=== PATIENT | male | born 1950 | race Caucasian/White ===

== ENCOUNTER 2016-08-25 21:29 | Emergency (ER) | payer MEDICARE, BC ==
[2016-08-25 21:43] VITALS: RESP 18; TEMP 97.5
[2016-08-25] MEDS ORDERED: SODIUM CHLORIDE 0.9% 500 ML IV STA (22:12)
[2016-08-25] MEDS ORDERED: RX INFO: IV CONTRAST WAS GIVEN 1 EACH MISC MISCELLANE PRN (22:12)
--- NOTE | 2016-08-25 23:01 | ED ---
Abdominal Pain HPI - General Chief Complaint: Abdominal Pain Stated Complaint: Abd swelling Time Seen by Provider: 08/25/16 22:12 Source: patient, RN notes reviewed Mode of arrival: ambulatory Limitations: no limitations - History of Present Illness Initial Comments: Patient is a 65-year-old male presenting to the with chief complaint of feeling a bulge in his left upper quadrant of his abdomen. Patient reports he' s had a history of a triple a repair and stated that his surgery went well. Patient reports that this happened approximately a year ago. Patient denies any abdominal pain at this time he denies any nausea or vomiting. He just reports that he's noticed this bulge over the area for approximately one day. He states that he was given a rash over the abdomen and is concerned that maybe the mesh removed causing a hernia. Patient denies any fever or chills. Patient denies any recent fever, chills, shortness of breath, chest pain, back pain, abdominal pain, nausea vomiting, numbness or tingling, dysuria or hematuria, constipation or diarrhea, headaches or visual changes, or any other current symptoms - Related Data Home Medications Medication Instructions Recorded Confirmed Aspirin 81 mg PO DAILY 03/18/14 08/25/16 Atorvastatin [Lipitor] 40 mg PO DAILY 08/25/16 08/25/16 Lisinopril [Zestril] 5 mg PO DAILY 08/25/16 08/25/16 Metoprolol Tartrate [Lopressor] 25 mg PO BID 08/25/16 08/25/16 Tadalafil [Cialis] 5 mg PO DIRECTED 08/25/16 08/25/16 Allergies Allergy/AdvReac Type Severity Reaction Status Date / Time No Known Allergies Allergy Verified 08/25/16 22:30 Review of Systems ROS Statement: Those systems with pertinent positive or pertinent negative responses have been documented in the HPI. ROS Other: All systems not noted in ROS Statement are negative. Past Medical History Past Medical History: Hyperlipidemia, Hypertension Additional Past Medical History / Comment(s): aortic aneursym History of Any Multi-Drug Resistant Organisms: None Reported Past Surgical History: Hernia Repair Past Anesthesia/Blood Transfusion Reactions: No Reported Reaction Past Psychological History: No Psychological Hx Reported Smoking Status: Never smoker Past Alcohol Use History: Occasional Past Drug Use History: None Reported General Exam - General Exam Comments Initial Comments: Patient is a well-appearing 65-year-old male. He does not appear to be in any acute distress. Limitations: no limitations General appearance: alert, in no apparent distress Head exam: Present: atraumatic, normocephalic, normal inspection Eye exam: Present: normal appearance, PERRL, EOMI. Absent: scleral icterus, conjunctival injection, periorbital swelling ENT exam: Present: normal exam, mucous membranes moist Neck exam: Present: normal inspection. Absent: tenderness, meningismus, lymphadenopathy Respiratory exam: Present: normal lung sounds bilaterally. Absent: respiratory distress, wheezes, rales, rhonchi, stridor Cardiovascular Exam: Present: regular rate, normal rhythm, normal heart sounds. Absent: systolic murmur, diastolic murmur, rubs, gallop, clicks GI/Abdominal exam: Present: soft, normal bowel sounds, mass (Evidence of a bulge in the left upper quadrant measuring approximately 4 cm x 5 cm. No evidence of acute tenderness at the area of the bulge. No evidence of strangulation. No numbness of erythema around the abdomen.). Absent: distended , tenderness, guarding, rebound, rigid Extremities exam: Present: normal inspection, full ROM, normal capillary refill. Absent: tenderness, pedal edema, joint swelling, calf tenderness Back exam: Present: normal inspection Neurological exam: Present: alert, oriented X3, CN II-XII intact Psychiatric exam: Present: normal affect, normal mood Skin exam: Present: warm, dry, intact, normal color. Absent: rash Course Vital Signs 08/25/16 08/26/16 21:40 00:42 Temperature 97.5 F L Pulse Rate 94 79 Respiratory 18 18 Rate Blood Pressure 140/81 133/86 O2 Sat by Pulse 97 98 Oximetry Medical Decision Making - Medical Decision Making Patient is a 65-year-old male presenting to the with chief complaint of left- sided abdominal bulge. Patient reports he has had a history of AAA and repair. Patient reports that he has no abdominal pain at this time. He just reported that he looked down and noticed a bulge today. He denies any straining or heavy lifting causing the bulge. All labs are reviewed to be negative. Patient CT shows no significant abnormalities in the abdomen. There is evidence of the right upper quadrant abdominal irregularity related to the hernia repair which is related to the abdominal lump. There is no inflammation or fluid collections noted in the area. The patient has no pain and I'll have him follow-up with surgeon out patiently in regards to this abdominal bulge. Return parameters were discussed. Patient understands treatment plan will comply. - Lab Data Result diagrams: 08/25/16 23:07 08/25/16 23:07 Lab Results 08/25/16 08/25/16 08/25/16 Range/Units 23:07 23:07 23:07 WBC 9.6 (3.8-10.6) k/uL RBC 4.73 (4.30-5.90) m/uL Hgb 14.9 (13.0-17.5) gm/dL Hct 45.0 (39.0-53.0) % MCV 95.1 (80.0-100.0) fL MCH 31.6 (25.0-35.0) pg MCHC 33.2 (31.0-37.0) g/dL RDW 13.1 (11.5-15.5) % Plt Count 170 (150-450) k/uL Neutrophils % 63 % Lymphocytes % 23 % Monocytes % 8 % Eosinophils % 3 % Basophils % 1 % Neutrophils # 6.0 (1.3-7.7) k/uL Lymphocytes # 2.2 (1.0-4.8) k/uL Monocytes # 0.8 (0-1.0) k/uL Eosinophils # 0.3 (0-0.7) k/uL Basophils # 0.1 (0-0.2) k/uL Sodium 140 (137-145) mmol/L Potassium 4.3 (3.5-5.1) mmol/L Chloride 107 (98-107) mmol/L Carbon Dioxide 23 (22-30) mmol/L Anion Gap 10 mmol/L BUN 23 H (9-20) mg/dL Creatinine 0.80 (0.66-1.25) mg/dL Est GFR (MDRD) Af Amer >60 (>60 ml/min/1.73 sqM) Est GFR (MDRD) Non-Af >60 (>60 ml/min/1.73 sqM) Glucose 119 H (74-99) mg/dL Plasma Lactic Acid Mio 0.8 (0.7-2.0) mmol/L Calcium 9.2 (8.4-10.2) mg/dL Total Bilirubin 0.5 (0.2-1.3) mg/dL AST 37 (17-59) U/L ALT 50 (21-72) U/L Alkaline Phosphatase 80 (38-126) U/L Total Protein 6.9 (6.3-8.2) g/dL Albumin 4.1 (3.5-5.0) g/dL Amylase 32 (30-110) U/L Lipase 57 (23-300) U/L - Radiology Data Radiology results: report reviewed CT abdomen and pelvis shows no acute abnormalities noted in the abdomen and pelvis. There is postsurgical changes of the abdominal hernia repair with slight irregularity in the right upper abdomen related to patient's right upper side abdominal wall. No abnormal inflammation or fluid collections are noted in this area or anterior right abdomen. Clinical correlation and follow-up is recommended. Postsurgical changes of the AAA repair with extensor and place. He patient has chronic diverticulosis. Patient also has an enlarged prostate gland. This was read by Dr. Lorin espinosa. Disposition Clinical Impression: Abdominal wall bulge Disposition: HOME SELF-CARE Condition: Good Instructions: Ventral Hernia (ED) Additional Instructions: Is instructed to follow-up with surgeon in regards to these changes. Patient instructed to return to the [facility] if any alarming signs or symptoms occur quickly increased pain or redness of the bulging site. Follow-up with primary care physician as well in one to 2 days. Referrals: Sarath Love MD [Primary Care Provider] - 1-2 days Time of Disposition: 00:37
[2016-08-25 23:16] LABS: Basophils # (A) 0.1 k/uL (0-0.2); Basophils % (A) 1 %; CH 32.2; Eosinophils # (A) 0.3 k/uL (0-0.7); Eosinophils % (A) 3 %; HDW 2.26; HGB 14.9 gm/dL (13.0-17.5); Luc # (Auto) 0.22; Luc % (Auto) 2; Lymphocytes # (A) 2.2 k/uL (1.0-4.8); Lymphocytes % (A) 23 %; MCH 31.6 pg (25.0-35.0); MCHC 33.2 g/dL (31.0-37.0); MCV 95.1 fL (80.0-100.0); Mean Platelet Volume 6.7; Monocytes # (A) 0.8 k/uL (0-1.0); Monocytes % (A) 8 %; Neutrophils % (A) 63 %; RBC 4.73 m/uL (4.30-5.90); RDW 13.1 % (11.5-15.5); WBC 9.6 k/uL (3.8-10.6); WBC (Perox) 10.12
[2016-08-25 23:27] LABS: ALT 50 U/L (21-72); AST 37 U/L (17-59); Alkaline Phosphatase 80 U/L (38-126); Amylase 32 U/L (30-110); Anion Gap 10 mmol/L; Blood Urea Nitrogen 23 mg/dL (9-20); Calcium 9.2 mg/dL (8.4-10.2); Carbon Dioxide 23 mmol/L (22-30); Chloride 107 mmol/L (98-107); Glucose 119 mg/dL (74-99); Non-African American GFR(MDRD) >60 (>60 ml/min/1.73 sqM); Potassium 4.3 mmol/L (3.5-5.1); Sodium 140 mmol/L (137-145); Total Bilirubin 0.5 mg/dL (0.2-1.3); Total Protein 6.9 g/dL (6.3-8.2)
--- NOTE | 2016-08-26 00:22 | CT ---
EXAMINATION TYPE: CT abdomen pelvis w con DATE OF EXAM: 08/25/2016 11:57 PM COMPARISON: 01/06/2015 HISTORY: upper abd pain, possible hernia. History of lump in the upper right side of abdomen. History of AAA and hernia. CT DLP: 520.70 mGycm Automated exposure control for dose reduction was used. TECHNIQUE: Helical acquisition of images was performed from the lung bases through the pelvis. CONTRAST: Performed without Oral Contrast and with IV Contrast, patient injected with 100 mL of Omnipaque 300. FINDINGS: LUNG BASES: Mild dependent atelectasis is noted in both lung bases. LIVER/GB: No significant abnormality is appreciated. PANCREAS: No significant abnormality is seen. SPLEEN: No significant abnormality is seen. ADRENALS: No significant abnormality is seen. KIDNEYS: No significant abnormality is seen. RETROPERITONEAL ADENOPATHY: None visualized REPRODUCTIVE ORGANS: Enlarged prostate gland is noted. URINARY BLADDER: No significant abnormality is seen. PELVIC ADENOPATHY: None visualized. OSSEOUS STRUCTURES: No significant abnormality is seen. BOWEL: There is evidence of mild to moderate colonic diverticulosis without definite acute diverticu litis changes. Appendix is not well visualized and no significant inflammation is noted in the append ix area. OTHER: There are postsurgical changes of repair of anterior abdominal wall hernia with mesh in place without definite recurrent abdominal hernia. There is slight irregularity in the area of postsurgical changes of anterior abdominal wall hernia an d is most likely related to postsurgical changes and the mesh in place. There is somewhat prominent soft tissue projection of anterior abdominal muscles in the right upper a bdomen in the axial image 55 is probably related to the patient's feeling of lump in the upper right abdomen and is most likely related to postsurgical changes with muscular structures rather than abnor mal fluid collections or abscess collection. There are postsurgical changes of repair of the distal AAA with aortoiliac stents in place without de finite recurrent aneurysm. The infrarenal abdominal aorta measures 2.5 cm in greatest transverse diameter in the infrarenal area in the axial image 50. Atherosclerotic calcification is noted in this area of abdominal aortic aneur ysm. The lucencies seen in the distal abdominal aorta in the coronal image 39 are probably related to postsurgical changes with stent placement. IMPRESSION: 1. NO SIGNIFICANT ACUTE ABNORMALITIES ARE NOTED IN THE ABDOMEN AND PELVIS. 2. POSTSURGICAL CHANGES OF ABDOMINAL HERNIA REPAIR WITH SLIGHT IRREGULARITY IN THE RIGHT UPPER ABDOME N PROBABLY RELATED TO PATIENT'S UPPER RIGHT SIDE ABDOMINAL LUMP. NO ABNORMAL INFLAMMATION OR FLUID CO LLECTIONS ARE NOTED IN THIS AREA OF ANTERIOR RIGHT UPPER ABDOMEN. A CLINICAL CORRELATION AND FOLLOW-U P IS RECOMMENDED. 3. POSTSURGICAL CHANGES OF AAA REPAIR WITH STENTS IN PLACE. 4. COLONIC DIVERTICULOSIS. 5. ENLARGED PROSTATE GLAND.
[2016-08-26 00:46] VITALS: BP 133/86; PULSE 79
== END 2016-08-26 00:43 | disposition home or self-care (01) ==
LOC: EC 21:29
DX: K43.9 Ventral hernia without obstruction or gangrene (principal); E78.5 Hyperlipidemia, unspecified; I10 Essential (primary) hypertension; Z86.79 Personal history of other diseases of the circulatory system; Z79.82 Long term (current) use of aspirin; Z79.899 Other long term (current) drug therapy; Z98.890 Other specified postprocedural states
CPT/HCPCS: 99284 ×2; 96360 ×2; 96361 ×2; 36415; 80053; 82150; 83605; 83690; 85025; 74177; Q9967

== ENCOUNTER → 2021-10-27 | Outpatient (CLI) | payer MEDICARE ==
--- NOTE | 2021-10-27 16:18 | US ---
EXAMINATION TYPE: US carotid duplex BILAT DATE OF EXAM: 10/27/2021 COMPARISON: NONE CLINICAL HISTORY: I73.1 AAA. no stroke history, no symptoms, h/o AAA repair EXAM MEASUREMENTS: RIGHT: Peak Systolic Velocity (PSV) cm/sec ----- Right CCA: 57.0 ----- Right ICA: 120.0 ----- Right ECA: 70.0 ICA/CCA ratio: 2.1 RIGHT: End Diastole cm/sec ----- Right CCA: 12.6 ----- Right ICA: 44.7 ----- Right ECA: 9.4 LEFT: Peak Systolic Velocity (PSV) cm/sec ----- Left CCA: 63.0 ----- Left ICA: 53.7 ----- Left ECA: 50.2 ICA/CCA ratio: 0.9 LEFT: End Diastole cm/sec ----- Left CCA: 15.9 ----- Left ICA: 13.3 ----- Left ECA: 5.9 VERTEBRALS (direction of flow): Right Vertebral: Antegrade Left Vertebral: Antegrade Rhythm: Normal Mild heterogeneous plaque with no significant stenosis seen . Small amount of plaque is at the right carotid bulb. Intimal thickenings in the common carotid artery on the right. Small plaque is within t he left carotid bulb. IMPRESSION: 1. Atheromatous plaquing present bilaterally without significant flow-limiting stenosis. Criteria for Assigning % of Stenosis / Diameter reduction (Estimation based on the indirect measurements of the internal carotid artery velocities (ICA PSV). 1. Normal (no stenosis)=ICA PSV < 125 cm/s: ratio < 2.0: ICA EDV<40 cm/s. 2. Less than 50% stenosis=ICA PSV < 125 cm/s: ratio < 2.0: ICA EDV<40 cm/s. 3. 50 to 69% stenosis=ICA PSV of 125 to 230 cm/s: ration 2.0 ? 4.0: ICA EDV 40-100 cm/s. 4. Greater than 70% stenosis to near occlusion= ICA PSV > 230 cm/s: ratio > 4.0: ICA EDV > 100 cm/s. 5. Near occlusion= ICA PSV velocities may be low or undetectable: variable ratio and ICA EDV. 6. Total occlusion=unable to detect flow.
== END | disposition home or self-care (01) ==
LOC: RADUSWWP 12:07
PROVIDERS: ATTEND Family Medicine
DX: I67.2 Cerebral atherosclerosis (principal)
CPT/HCPCS: 93880

== ENCOUNTER 2022-08-20 21:45 | Emergency (ER) | payer MEDICARE ==
[2022-08-20 21:55] VITALS: TEMP 97.2
--- NOTE | 2022-08-20 22:00 | ED ---
SOB HPI - General Chief Complaint: Shortness of Breath Stated Complaint: SOB Time Seen by Provider: 08/20/22 21:58 Source: patient, RN notes reviewed, old records reviewed, Caregiver Mode of arrival: ambulatory Limitations: no limitations - History of Present Illness Initial Comments: This is a 71-year-old male DF for evaluation today. Patient Dese for evaluation of severe shortness of breath increased shortness of breath that got significantly worse I will making his bed. He became very anxious checked his blood pressure was severely elevated and he came in the emergency department. Patient has no current chest pain x-ray states he feels better now that he has been waiting to come the hospital. Patient has no recent travel history or sick contacts recent fever cough congestion or illnesses MD Complaint: shortness of breath -: minutes(s) Severity: moderate Severity scale (1-10): 7 Consistency: constant, now resolved (Not resolved but improving) Improves With: rest Worsens With: exertion, movement Known History Of: other (0) Context: other (0) Associated Symptoms: denies other symptoms Treatments Prior to Arrival: none - Related Data Home Medications Medication Instructions Recorded Confirmed Aspirin 81 mg PO DAILY 03/18/14 08/25/16 Atorvastatin [Lipitor] 40 mg PO DAILY 08/25/16 08/25/16 Metoprolol Tartrate [Lopressor] 25 mg PO BID 08/25/16 08/25/16 Tadalafil [Cialis] 5 mg PO DIRECTED 08/25/16 08/25/16 lisinopriL [Zestril] 5 mg PO DAILY 08/25/16 08/25/16 Allergies Allergy/AdvReac Type Severity Reaction Status Date / Time No Known Allergies Allergy Verified 08/20/22 21:51 Review of Systems ROS Statement: Those systems with pertinent positive or pertinent negative responses have been documented in the HPI. ROS Other: All systems not noted in ROS Statement are negative. Past Medical History Past Medical History: Hyperlipidemia, Hypertension Additional Past Medical History / Comment(s): aortic aneursym History of Any Multi-Drug Resistant Organisms: None Reported Past Surgical History: Hernia Repair Additional Past Surgical History / Comment(s): AAA repair Past Anesthesia/Blood Transfusion Reactions: No Reported Reaction Past Psychological History: No Psychological Hx Reported Smoking Status: Never smoker Past Alcohol Use History: Occasional Past Drug Use History: None Reported General Exam Limitations: no limitations General appearance: alert, in no apparent distress Head exam: Present: atraumatic, normocephalic, normal inspection Eye exam: Present: normal appearance, PERRL, EOMI. Absent: scleral icterus, conjunctival injection, periorbital swelling ENT exam: Present: normal exam, mucous membranes moist Neck exam: Present: normal inspection. Absent: tenderness, meningismus, lymphadenopathy Respiratory exam: Present: normal lung sounds bilaterally. Absent: respiratory distress, wheezes, rales, rhonchi, stridor Cardiovascular Exam: Present: regular rate, normal rhythm, normal heart sounds. Absent: systolic murmur, diastolic murmur, rubs, gallop, clicks GI/Abdominal exam: Present: soft, normal bowel sounds. Absent: distended, tenderness, guarding, rebound, rigid Extremities exam: Present: normal inspection, full ROM, normal capillary refill. Absent: tenderness, pedal edema, joint swelling, calf tenderness Back exam: Present: normal inspection Neurological exam: Present: alert, oriented X3, CN II-XII intact Psychiatric exam: Present: normal affect, normal mood Skin exam: Present: warm, dry, intact, normal color. Absent: rash Course Vital Signs 08/20/22 08/20/22 08/20/22 21:51 21:56 22:02 Temperature 97.2 F L Pulse Rate 98 Respiratory 18 Rate Blood Pressure 208/129 183/115 O2 Sat by Pulse 95 95 Oximetry 08/20/22 08/20/22 08/20/22 22:03 22:04 22:05 Temperature Pulse Rate 99 95 Respiratory 20 21 22 Rate Blood Pressure 194/118 O2 Sat by Pulse 95 95 96 Oximetry 08/20/22 08/20/22 08/20/22 22:06 22:07 22:08 Temperature Pulse Rate 93 95 94 Respiratory 19 20 18 Rate Blood Pressure 194/118 194/118 194/118 O2 Sat by Pulse 95 94 L 95 Oximetry 08/20/22 08/20/22 08/20/22 22:09 22:10 22:11 Temperature Pulse Rate 96 94 90 Respiratory 13 23 17 Rate Blood Pressure 194/118 194/118 194/118 O2 Sat by Pulse 94 L 94 L 95 Oximetry 08/20/22 08/20/22 08/20/22 22:12 22:13 22:14 Temperature Pulse Rate 96 95 100 Respiratory 22 11 L 19 Rate Blood Pressure 194/118 194/118 194/118 O2 Sat by Pulse 95 94 L 94 L Oximetry 08/20/22 08/20/22 08/20/22 22:15 22:16 22:17 Temperature Pulse Rate 96 96 99 Respiratory 6 L 21 30 H Rate Blood Pressure 194/118 194/118 192/121 O2 Sat by Pulse 93 L 94 L 93 L Oximetry 08/20/22 08/20/22 08/20/22 22:30 23:00 23:59 Temperature Pulse Rate 97 100 Respiratory 16 19 18 Rate Blood Pressure 192/121 187/129 175/125 O2 Sat by Pulse 93 L 93 L 91 L Oximetry - Reevaluation(s) Reevaluation #1: 08/20/22 22:00 Medical records reviewed Reevaluation #2: 08/21/22 00:04 Patient symptoms continue to improve remains without any shortness of breath or chest pain Reevaluation #3: 08/21/22 00:04 Patient informed results and questions are answered Reevaluation #4: 08/20/22 22:00 Differential Dyspnea: Coronary syndrome, arrhythmia, tamponade, asthma, COPD, pulmonary embolism, pneumonia, pneumothorax, pulmonary effusion, anaphylaxis, diabetic ketoacidosis, flailed chest, pulmonary contusion, diaphragmatic rupture, anemia, neuromuscular, this is not meant to be an all-inclusive list. Reevaluation #5: 08/20/22 22:00 Was pt. sent in by a medical professional or institution? @ -no Did you speak to anyone other than the patient for history? @ -no Did you review nursing and triage notes? @ -agree Were old charts reviewed? @ -yes prior sx evaluation Differential Diagnosis? @ -prior EKG interpreted by me (3pts min.)? @ -[none] X-rays interpreted by me (1pt min.)? @ -yes CT interpreted by me (1pt min.)? @ -[none] U/S interpreted by me (1pt. min.)? @ -[none] What testing was considered but not performed? (CT, X-rays, U/S, labs)? Why? @ no What meds were considered but not given? Why? @ -[none] Did you discuss the management of the patient with other professionals? @ -no Did you reconcile home meds? @ -[none] Was smoking cessation discussed for >3mins.? @ -[none] Was critical care preformed (if so, how long)? @ -[none] Were there social determinants of health that impacted care today? How? (H omelessness, low income, unemployed, alcoholism, drug addiction, transportation, low edu. Level, literacy, decrease access to med. care, shelter, rehab)? @ -no Was there de-escalation of care discussed even if they declined? (Discuss DNR or withdrawal of care, Hospice)? @ -no What co-morbidities impacted this encounter? (DM, HTN, Smoking, COPD, CAD, Cancer, CVA, Hep., AIDS, mental health diagnosis, sleep apnea, morbid obesity)? @ -no Was patient admitted / discharged? @ -dc Undiagnosed new problem with uncertain prognosis? @ -[none] Drug Therapy requiring intensive monitoring for toxicity (Heparin, Nitro, Insulin, Cardizem)? @ -[none] Were any procedures done? @ -[none] Diagnosis/symptom? @ -[default] Acute, or Chronic, or Acute on Chronic? @ -[default] Uncomplicated (without systemic symptoms) or Complicated (systemic symptoms)? @ -[default] Side effects of treatment? @ -[none] Exacerbation, Progression, or Severe Exacerbation] @ -[no] Poses a threat to life or bodily function? @ -[no] 08/21/22 00:04 Medical Decision Making - Medical Decision Making 71 male DF for evaluation of shortness of breath will patient notices blood pressure to be elevated them presents today for evaluation. Patient is no shortness of breath here in the ER pressures improved and can be discharged home. - Lab Data Result diagrams: 08/20/22 22:13 08/20/22 22:13 Lab Results 08/20/22 08/20/22 08/20/22 Range/Units 22:13 22:13 22:13 WBC 11.2 H (3.8-10.6) k/uL RBC 4.88 (4.30-5.90) m/uL Hgb 15.7 (13.0-17.5) gm/dL Hct 46.1 (39.0-53.0) % MCV 94.4 (80.0-100.0) fL MCH 32.3 (25.0-35.0) pg MCHC 34.2 (31.0-37.0) g/dL RDW 13.0 (11.5-15.5) % Plt Count 164 (150-450) k/uL MPV 7.1 Neutrophils % 56 % Lymphocytes % 29 % Monocytes % 8 % Eosinophils % 3 % Basophils % 1 % Neutrophils # 6.3 (1.3-7.7) k/uL Lymphocytes # 3.3 (1.0-4.8) k/uL Monocytes # 0.9 (0-1.0) k/uL Eosinophils # 0.3 (0-0.7) k/uL Basophils # 0.1 (0-0.2) k/uL PT 9.9 (9.0-12.0) sec INR 0.9 (<1.2) APTT 23.4 (22.0-30.0) sec Sodium 138 (137-145) mmol/L Potassium 3.8 (3.5-5.1) mmol/L Chloride 105 (98-107) mmol/L Carbon Dioxide 24 (22-30) mmol/L Anion Gap 9 mmol/L BUN 19 (9-20) mg/dL Creatinine 0.88 (0.66-1.25) mg/dL Est GFR (CKD-EPI)AfAm >90 (>60 ml/min/1.73 sqM) Est GFR (CKD-EPI)NonAf 87 (>60 ml/min/1.73 sqM) Glucose 132 H (74-99) mg/dL Calcium 9.3 (8.4-10.2) mg/dL Magnesium 1.8 (1.6-2.3) mg/dL Total Bilirubin 0.5 (0.2-1.3) mg/dL AST 20 (17-59) U/L ALT 20 (4-49) U/L Alkaline Phosphatase 73 (38-126) U/L Troponin I (0.000-0.034) ng/mL NT-Pro-B Natriuret Pep pg/mL Total Protein 7.4 (6.3-8.2) g/dL Albumin 4.5 (3.5-5.0) g/dL 08/20/22 08/20/22 Range/Units 22:13 22:13 WBC (3.8-10.6) k/uL RBC (4.30-5.90) m/uL Hgb (13.0-17.5) gm/dL Hct (39.0-53.0) % MCV (80.0-100.0) fL MCH (25.0-35.0) pg MCHC (31.0-37.0) g/dL RDW (11.5-15.5) % Plt Count (150-450) k/uL MPV Neutrophils % % Lymphocytes % % Monocytes % % Eosinophils % % Basophils % % Neutrophils # (1.3-7.7) k/uL Lymphocytes # (1.0-4.8) k/uL Monocytes # (0-1.0) k/uL Eosinophils # (0-0.7) k/uL Basophils # (0-0.2) k/uL PT (9.0-12.0) sec INR (<1.2) APTT (22.0-30.0) sec Sodium (137-145) mmol/L Potassium (3.5-5.1) mmol/L Chloride (98-107) mmol/L Carbon Dioxide (22-30) mmol/L Anion Gap mmol/L BUN (9-20) mg/dL Creatinine (0.66-1.25) mg/dL Est GFR (CKD-EPI)AfAm (>60 ml/min/1.73 sqM) Est GFR (CKD-EPI)NonAf (>60 ml/min/1.73 sqM) Glucose (74-99) mg/dL Calcium (8.4-10.2) mg/dL Magnesium (1.6-2.3) mg/dL Total Bilirubin (0.2-1.3) mg/dL AST (17-59) U/L ALT (4-49) U/L Alkaline Phosphatase (38-126) U/L Troponin I <0.012 (0.000-0.034) ng/mL NT-Pro-B Natriuret Pep 45 pg/mL Total Protein (6.3-8.2) g/dL Albumin (3.5-5.0) g/dL - EKG Data -: EKG Interpreted by Me (EKG is sinus 92 OK 135 QRS 96 QTc 391) - Radiology Data Radiology results: report reviewed (Chest x-ray CT [facility] pelvis negative for acute disease), image reviewed Disposition Clinical Impression: Dyspnea, Hypertension Disposition: HOME SELF-CARE Condition: Good Instructions (If sedation given, give patient instructions): Hypertension (ED) Is patient prescribed a controlled substance at d/c from ED?: No Referrals: Jagruti Cruz NPC [Primary Care Provider] - 1-2 days Time of Disposition: 00:05
[2022-08-20 22:22] LABS: Basophils # (A) 0.1 k/uL (0-0.2); Basophils % (A) 1 %; Eosinophils # (A) 0.3 k/uL (0-0.7); Eosinophils % (A) 3 %; HCT 46.1 % (39.0-53.0); HGB 15.7 gm/dL (13.0-17.5); Lymphocytes # (A) 3.3 k/uL (1.0-4.8); Lymphocytes % (A) 29 %; MCH 32.3 pg (25.0-35.0); MCHC 34.2 g/dL (31.0-37.0); MCV 94.4 fL (80.0-100.0); Mean Platelet Volume 7.1; Monocytes # (A) 0.9 k/uL (0-1.0); Monocytes % (A) 8 %; Neutrophils # (A) 6.3 k/uL (1.3-7.7); Neutrophils % (A) 56 %; Platelet Count 164 k/uL (150-450); RBC 4.88 m/uL (4.30-5.90); WBC 11.2 k/uL (3.8-10.6)
[2022-08-20 22:31] LABS: INR 0.9 (<1.2); Partial Thromboplastin Time 23.4 sec (22.0-30.0); Prothrombin Time 9.9 sec (9.0-12.0)
[2022-08-20 22:32] LABS: ALT 20 U/L (4-49); AST 20 U/L (17-59); African American GFR (CKD) >90 (>60 ml/min/1.73 sqM); Albumin 4.5 g/dL (3.5-5.0); Alkaline Phosphatase 73 U/L (38-126); Anion Gap 9 mmol/L; Blood Urea Nitrogen 19 mg/dL (9-20); Calcium 9.3 mg/dL (8.4-10.2); Carbon Dioxide 24 mmol/L (22-30); Chloride 105 mmol/L (98-107); Glucose 132 mg/dL (74-99); Magnesium 1.8 mg/dL (1.6-2.3); Non-African American GFR(CKD) 87 (>60 ml/min/1.73 sqM); Potassium 3.8 mmol/L (3.5-5.1); Sodium 138 mmol/L (137-145); Total Bilirubin 0.5 mg/dL (0.2-1.3); Total Protein 7.4 g/dL (6.3-8.2)
--- NOTE | 2022-08-20 22:33 | XR ---
EXAMINATION TYPE: XR chest 1V portable DATE OF EXAM: 08/20/2022 COMPARISON: 04/17/2014 HISTORY: Chest pain TECHNIQUE: FINDINGS: Heart is normal. Lungs are clear. Diaphragm is normal. Bony thorax appears normal. IMPRESSION: No active cardiopulmonary disease. No change.
--- NOTE | 2022-08-20 23:25 | CT ---
EXAMINATION TYPE: CT angio chest DATE OF EXAM: 08/20/2022 COMPARISON: None HISTORY: SOB, high BP CT DLP: 622.75 mGycm Automated exposure control for dose reduction was used. CONTRAST: Performed with IV Contrast, patient injected with 100ml combined mL of Isovue 370. Images obtained from the thoracic inlet through the diaphragm with the IV contrast. There are Three-D postprocessed images. The lungs are clear of consolidation. No pleural effusion. Heart size is normal. No pericardial effus ion. There is no mediastinal adenopathy. There are no hilar masses. Ascending aorta measures 3.7 cm. No an eurysm or dissection. There is normal contrast opacification of the pulmonary arteries. No filling defect. The sternum is i ntact. No evidence of rib fracture. The thoracic spine is intact. No compression fracture. Sternum is intact. Upper abdominal soft tissue s are intact. IMPRESSION: No evidence of pulmonary embolism. Minimal subsegmental atelectasis at the lung bases. No suspicious pulmonary mass.
--- NOTE | 2022-08-20 23:32 | CT ---
EXAMINATION TYPE: CT abdomen pelvis w con DATE OF EXAM: 08/20/2022 COMPARISON: 08/25/2016 HISTORY: SOB, High BP CT DLP: 622.75 mGycm Automated exposure control for dose reduction was used. CONTRAST: Performed with IV Contrast, patient injected with 100ml combined mL of Isovue 370. Images obtained from the diaphragm to the floor the pelvis with the IV contrast. The lung bases are clear of consolidation. No pleural effusion. Heart size is normal. Liver spleen and stomach pancreas appear intact. The bile ducts are not dilated. Gallbladder is absen t. There is no adrenal mass. Kidneys show satisfactory contrast opacification. No hydronephrosis. Ureter s are not dilated. No retroperitoneal adenopathy. The bladder distends smoothly. Prostate measures 5. 3 cm. No inguinal hernia. No free fluid in the pelvis. There is no mesenteric edema. No ascites or free air. No sign of a bowel obstruction. Delayed images show normal renal excretion. No intestinal wall thickening. The lumbar vertebrae have normal alignment. Posterior elements are intact. No compression fracture. S acroiliac joints are intact. Bony pelvis is intact. The hip joints are intact. 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 There is some mild plaque formation on the right lateral wall of the mid abdominal aorta. 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 The graft appears patent. 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 IMPRESSION: Atherosclerotic vascular disease. No acute abnormality in the abdomen and pelvis. Enlarged prostate. No significant change compared to the old exam.
[2022-08-21] MEDS ORDERED: LABETALOL 5 MG/ML VIAL MDV IVP STA (00:01)
[2022-08-21 00:43] VITALS: BP 145/106; PULSE 98; RESP 25
== END 2022-08-21 00:52 | disposition home or self-care (01) ==
LOC: EC 21:45
DX: I10 Essential (primary) hypertension (principal); R06.00 Dyspnea, unspecified; I25.10 Atherosclerotic heart disease of native coronary artery without angina pectoris; E78.5 Hyperlipidemia, unspecified; Z79.899 Other long term (current) drug therapy; Z79.82 Long term (current) use of aspirin
CPT/HCPCS: 93005; 83880; 80053; 83735; 84484; 85025; 85610; 85730; 71045; 71275; 74177; 99285; 96374; Q9967; 36415; 83605

== ENCOUNTER 2022-11-11 20:01 | Emergency (ER) | payer MEDICARE ==
[2022-11-11 20:20] VITALS: BP 174/87; PULSE 85; RESP 20; TEMP 97.9
--- NOTE | 2022-11-11 20:46 | ED ---
General Adult HPI - General Chief complaint: Recheck/Abnormal Lab/Rx Stated complaint: testing for covid for travel Time Seen by Provider: 11/11/22 20:17 Source: patient, RN notes reviewed, old records reviewed Mode of arrival: ambulatory Limitations: no limitations - History of Present Illness Initial comments: 71-year-old male presenting for coronavirus test. Patient has no complaints. [place] and requires a negative covid test to fly. - Related Data Home Medications Medication Instructions Recorded Confirmed Aspirin 81 mg PO DAILY 03/18/14 08/25/16 Atorvastatin [Lipitor] 40 mg PO DAILY 08/25/16 08/25/16 Metoprolol Tartrate [Lopressor] 25 mg PO BID 08/25/16 08/25/16 Tadalafil [Cialis] 5 mg PO DIRECTED 08/25/16 08/25/16 lisinopriL [Zestril] 5 mg PO DAILY 08/25/16 08/25/16 Allergies Allergy/AdvReac Type Severity Reaction Status Date / Time No Known Allergies Allergy Verified 11/11/22 20:20 Review of Systems ROS Statement: Those systems with pertinent positive or pertinent negative responses have been documented in the HPI. ROS Other: All systems not noted in ROS Statement are negative. Past Medical History Past Medical History: Hyperlipidemia, Hypertension Additional Past Medical History / Comment(s): aortic aneursym History of Any Multi-Drug Resistant Organisms: None Reported Past Surgical History: Hernia Repair Additional Past Surgical History / Comment(s): AAA repair Past Anesthesia/Blood Transfusion Reactions: No Reported Reaction Past Psychological History: No Psychological Hx Reported Smoking Status: Never smoker Past Alcohol Use History: Occasional Past Drug Use History: None Reported General Exam Limitations: no limitations General appearance: alert, in no apparent distress Head exam: Present: atraumatic, normocephalic Eye exam: Present: normal appearance, PERRL Respiratory exam: Present: normal lung sounds bilaterally. Absent: respiratory distress, wheezes Cardiovascular Exam: Present: regular rate, normal rhythm GI/Abdominal exam: Present: soft. Absent: distended, tenderness, guarding, rebound Extremities exam: Present: normal inspection Neurological exam: Present: alert Psychiatric exam: Present: normal affect, normal mood Skin exam: Present: warm Course Vital Signs 11/11/22 20:17 Temperature 97.9 F Pulse Rate 85 Respiratory 20 Rate Blood Pressure 174/87 O2 Sat by Pulse 96 Oximetry Medical Decision Making - Medical Decision Making Was pt. sent in by a medical professional or institution ([facility], [employer], urgent care, hospital, or long-term...) When possible be specific @ -[No] Did you speak to anyone other than the patient for history (EMS, parent, family, police, friend...)? What history was obtained from this source @ -[No] Did you review nursing and triage notes (agree or disagree)? Why? @ -[I reviewed and agree with nursing and triage notes] Were old charts reviewed (outside hosp., previous admission, EMS record, old EKG, old radiological studies, urgent care reports/EKG's, long-term records)? Report findings @ -[No old charts were reviewed] Differential Diagnosis (chest pain, altered mental status, abdominal pain women, abdominal pain men, vaginal bleeding, weakness, fever, dyspnea, syncope, headache, dizziness, GI bleed, back pain, seizure, CVA, palpatations, mental health, musculoskeletal)? @ -[not applicable] EKG interpreted by me (3pts min.). @ -[As above] X-rays interpreted by me (1pt min.). @ -[None done] CT interpreted by me (1pt min.). @ -[None done] U/S interpreted by me (1pt. min.). @ -[None done] What testing was considered but not performed or refused? (CT, X-rays, U/S, labs)? Why? @ -[None] What meds were considered but not given or refused? Why? @ -[None] Did you discuss the management of the patient with other professionals (professionals i.e. [facility], [employer], lab, RT, psych nurse, social service liaison, campaign advisor, teacher, youth liaison officer, patient case manager)? Give summary @ -[No] Was smoking cessation discussed for >3mins.? @ -[No] Was critical care preformed (if so, how long)? @ -[No] Were there social determinants of health that impacted care today? How? (Homelessness, low income, unemployed, alcoholism, drug addiction, transportation, low edu. Level, literacy, decrease access to med. care, usp, rehab)? @ -[No] Was there de-escalation of care discussed even if they declined (Discuss DNR or withdrawal of care, Hospice)? DNR status @ -[No] What co-morbidities impacted this encounter? (DM, HTN, Smoking, COPD, CAD, Cancer, CVA, ARF, Chemo, Hep., AIDS, mental health diagnosis, sleep apnea, morbid obesity)? @ -[None] Was patient admitted / discharged? Hospital course, mention meds given and route, prescriptions, significant lab abnormalities, going to OR and other pertinent info. @ -[Screening for covid] Undiagnosed new problem with uncertain prognosis? @ -[No] Drug Therapy requiring intensive monitoring for toxicity (Heparin, Nitro, Insulin, Cardizem)? @ -[No] Were any procedures done? @ -[No] Diagnosis/symptom? @ -[Well exam, negative Covid] - Lab Data Lab Results 11/11/22 Range/Units 20:27 Coronavirus (PCR) Not Detected (Not Detectd) Disposition Clinical Impression: Encounter for screening for COVID-19 Disposition: HOME SELF-CARE Condition: Good Is patient prescribed a controlled substance at d/c from ED?: No Referrals: Jagruti Alvarez MD [Primary Care Provider] - 1-2 days Time of Disposition: 20:46
== END 2022-11-11 21:10 | disposition home or self-care (01) ==
LOC: EC 20:01
DX: Z11.52 Encounter for screening for COVID-19 (principal); I10 Essential (primary) hypertension; E78.5 Hyperlipidemia, unspecified; Z20.822 Contact with and (suspected) exposure to COVID-19; Z79.82 Long term (current) use of aspirin; Z79.899 Other long term (current) drug therapy
CPT/HCPCS: 87635; 99283